=== PATIENT | male | born 1955 | race Caucasian/White ===

== ENCOUNTER 2018-03-09 15:26 | Outpatient (CLI) | payer OTHER ==
[2018-03-09 16:30] LABS: Anion Gap 15 mmol/L (10-20); BUN (Urea Nitrogen) 17 mg/dL (8.4-25.7); Calc. Creatinine Clearance 0 mL/min (70-130); Calcium 9.1 mg/dL (7.8-10.44); Carbon Dioxide 18 mmol/L (23-31); Chloride 103 mmol/L (98-107); Estimated GFR-MDRD 34; Glucose 76 mg/dL (80-115); Hemoglobin 10.9 g/dL (14.0-18.0); Mean Corpuscular HGB CONC 32.7 g/dL (32.0-36.0); Mean Corpuscular Hemoglobin 30.8 pg (27.0-31.0); Mean Corpuscular Volume 94.3 fl (80.0-94.0); Mean Platelet Volume 7.6 fL (7.4-10.4); Potassium 4.2 mmol/L (3.5-5.1); RBC Distribution Width 13.1 % (11.5-14.5); Red Blood Cell (RBC) Count 3.53 mill/uL (4.70-6.10); Sodium 132 mmol/L (136-145); White Blood Cell (WBC) Count 10.9 thou/uL (4.8-10.8)
== END 2018-03-09 15:27 | disposition home or self-care (01) ==
LOC: LABBT 15:26
PROVIDERS: ATTEND Specialist
DX: Z01.818 Encounter for other preprocedural examination (principal); K43.2 Incisional hernia without obstruction or gangrene
CPT/HCPCS: 80048; 85027; 93005; 93010

== ENCOUNTER 2018-08-31 09:43 | Day surgery (SDC) | payer OTHER ==
[2018-08-30 12:06] VITALS: BMI 27.2
--- NOTE | 2018-08-30 14:54 | HP ---
Previous dictation, 03/09/2018 HISTORY OF PRESENT ILLNESS: Mr. Polo Hall is a 63-year-old male patient, resident of [facility]. Patient is diagnosed with schizophrenia. The patient signs his own perm its and manages his own affairs. Accompanying him today is a longterm business banking representative. The patie nt has an incisional hernia about the umbilicus, probably 5-6 cm in diameter and plan is to repair th is robotically with mesh, as it is bothersome to him. The patient and the accompanying caregivers re quest that we not contact the patient's brother due to social reasons. Risk of infection, bleeding, and reoperation discussed. The patient has a history of Irizarry's esophagus, followed by Gastroenterology, Dr. Kruger. In of this year, he underwent at [facility], TURP, hospitalized for 5-7 days. He is urinatin g without difficulty. 07/25/2016, repair of incarcerated ventral hernia with reduction of small emmie l, omentum, and closure without mesh, performed by me. He has had urological procedures, 07/26/2016, cystoscopies, bladder biopsies, stent placement and removal. Colonoscopy 2015, Dr. Campos, collageno us colitis, biopsies revealed. CAT scan of abdomen and pelvis, 08/05/2016, without contrast revealed a large sliding hiatal hernia. MEDICATIONS: Benztropine mesylate 2 mg at bedtime, lactobacillus, metoprolol 25 mg tablet 1/2 tablet twice a day, olanzapine 10 mg 1 tablet daily, fluoxetine 20 mg daily, Protonix 40 mg a day, tramadol as needed for pain, Tylenol Extra Strength as needed. PAST MEDICAL HISTORY: As noted above, schizophrenia; BPH, status post TURP; incisional hernia; histo ry of ORIF, left ankle; ORIF, facial bones. TOBACCO: Cessation 6 months ago. ALCOHOL: None. PHYSICAL EXAMINATION: VITAL SIGNS: 196 pounds, 73 inches, 122/60, 66, 97 degrees. HEENT: Unremarkable. LUNGS: Clear to auscultation. CARDIAC: Regular rhythm without murmur, rub, or gallop. ABDOMEN: Soft, slightly protuberant, obese, just about the umbilicus and slightly above is a 5 cm de fect that is reducible. EXTREMITIES: Unremarkable. No ankle edema. ASSESSMENT AND PLAN: Incisional hernia. Plan robotic repair using mesh, possibly open procedure dis cussed. Risk of infection, bleeding, reoperation, we discussed, necessity avoiding lifting over 25 p ounds for 8 weeks postoperatively discussed.
[2018-08-31 11:05] LABS: #Eosinphils 0.4 thou/uL (0.0-0.7); #Lymphocytes 1.9 thou/uL (1.20-3.40); #Monocytes 0.5 thou/uL (0.11-0.59); #Neutrophils 2.6 thou/uL (1.40-6.50); %Basophils 0.5 % (0.0-1.0); %Eosinophils 7.1 % (0.0-10.0); %Monocytes 9.7 % (0.0-10.0); %Neutrophils 47.7 % (42.0-75.0); Hemoglobin 9.9 g/dL (14.0-18.0); Mean Corpuscular HGB CONC 30.9 g/dL (32.0-36.0); Mean Corpuscular Hemoglobin 28.3 pg (27.0-31.0); Mean Corpuscular Volume 91.7 fL (78.0-98.0); Mean Platelet Volume 5.8 fL (7.4-10.4); Platelet Count 266 thou/uL (130-400); Red Blood Cell (RBC) Count 3.48 mill/uL (4.70-6.10); White Blood Cell (WBC) Count 5.4 thou/uL (4.8-10.8)
[2018-08-31] MEDS ORDERED: Ketorolac Tromethamine 30 MG/ML VIAL ONE (11:13)
[2018-08-31] MEDS ORDERED: CEFAZOLIN 2 GM/50 ML BAG ONE (11:13)
[2018-08-31 11:18] LABS: Anion Gap 11 mmol/L (10-20); BUN (Urea Nitrogen) 20 mg/dL (8.4-25.7); Calc. Creatinine Clearance 45 mL/min (70-130); Carbon Dioxide 26 mmol/L (23-31); Chloride 105 mmol/L (98-107); Estimated GFR-MDRD 30; Glucose 108 mg/dL (80-115); Potassium 4.6 mmol/L (3.5-5.1); Sodium 137 mmol/L (136-145)
[2018-08-31] MEDS ORDERED: Bupivacaine/Epinephrine 0.25% 30 ML VIAL ONE (11:51)
[2018-08-31] MEDS ORDERED: Fentanyl 250 MCG/5 ML VIAL ONE (14:02)
[2018-08-31] MEDS ORDERED: Fentanyl 100 MCG/2 ML VIAL ONE (14:02)
[2018-08-31] MEDS ORDERED: Famotidine/PF 20 mg/2ml Vial ONE (14:03)
[2018-08-31] MEDS ORDERED: Glycopyrrolate 0.2 MG/ML 5 ML SYRINGE ONE (14:33)
[2018-08-31] MEDS ORDERED: PROPOFOL 200 MG/20 ML VIAL ONE (14:33)
[2018-08-31] MEDS ORDERED: Metoclopramide HCl 10 MG/2 ML VIAL ONE (14:33)
[2018-08-31] MEDS ORDERED: Ondansetron PF 4 MG/2 ML Vial ONE (14:33)
[2018-08-31] MEDS ORDERED: Dexamethasone 20 MG/5 ML VIAL ONE (14:33)
[2018-08-31] MEDS ORDERED: PHENYLEPHRINE-NS 100 MCG/ML 10 ML SYRINGE ONE (14:33)
[2018-08-31] MEDS ORDERED: Lidocaine 1% PF 5 ML VIAL ONE (14:33)
--- NOTE | 2018-08-31 23:51 | OP ---
DATE OF PROCEDURE: 08/31/2018 PREOPERATIVE DIAGNOSIS: Incisional hernia, supraumbilical midline 6 cm defect. POSTOPERATIVE DIAGNOSIS: Incisional hernia, supraumbilical midline 6 cm defect. PROCEDURES: Robotic incisional hernia repair with lysis of adhesions, closure of fascial defect with reinforcement of 10 x 15 cm Ventralight mesh. SURGEON: Dr. Vinay Bloom. ANESTHESIA: General. Local 0.5% Marcaine with epinephrine. DESCRIPTION OF PROCEDURE: Patient taken to the operating room where under general anesthesia, abdome n was prepared with ChloraPrep and draped in routine fashion. Bilateral subcostal far lateral incisi ons made. Pneumoperitoneum to 15 mmHg obtained with Veress needle replacing on one side 8 mm port an d the other side 8 mm port. In the end, laparoscope inserted and left subxiphoid incision made and a n 11 mm port placed. Balloon catheter held in place and robot moved to this port. With laparoscopic therapeutic assistant using scissors, falciform ligament was taken down and filmy adhesions taken down to enable documental of robot. The robot was docked. Robotic adhesiolysis undertaken freeing filmy adhesions from the anterior abdominal wall, identifying and skeletonizing a 6 cm defect. Hernia mass and omen carol reduced using hot scissors. At this point, pneumoperitoneum reduced to 9 mmHg and fascial defect closed from either side with continuous suture of #1 V-Loc suture. Once this was accomplished, anot her roll of V-Loc suture was placed from the other side reinforcing it. A x 15 cm Ventralight mesh t hen placed into the abdominal cavity and mesh once properly positioned, secured to the abdominal wall with continuous suture of #2-0 V-Loc suture circumferentially. Pneumoperitoneum reduced after all n eedles and instrument counts were correct and all instruments removed and all skin incisions closed w ith continuous circular suture of 4-0 Monocryl and DermaGlue applied. The patient tolerated the proc edure well.
== END 2018-08-31 18:50 | disposition home or self-care (01) ==
LOC: SDC 09:43
PROVIDERS: ATTEND Specialist
PROC: 0WUF4JZ Supplement Abdominal Wall with Synthetic Substitute, Percutaneous Endoscopic Approach (ICD-10-PCS; principal; 2018-08-31)
DX: K43.2 Incisional hernia without obstruction or gangrene (principal); K52.81 Eosinophilic gastritis or gastroenteritis; Z87.19 Personal history of other diseases of the digestive system; Z79.899 Other long term (current) drug therapy; Z87.891 Personal history of nicotine dependence
CPT/HCPCS: 80048; 85025; C1781; J0131; J1100; J1885; J2001; J2405; J2704; J2765; J3010; S0028